=== PATIENT | female | born 1985 | race Caucasian/White ===

== ENCOUNTER 2021-08-11 14:30 | Inpatient (IN) ==
[2021-08-11 15:52] LABS: Basophils % 0.4 % (0.0-0.8); Eosinophils # 0.1 10*3/uL (0.0-0.87); Eosinophils % 1.3 % (0.00-10.9); Hematocrit 37.3 VOL% (35.7-47.0); Hemoglobin 12.4 GM/DL (12.0-16.0); Immature Granulocytes Absolute 0.11 #; Lymphocytes # 2.7 10*3/uL (1.4-4.0); Lymphocytes % 24.5 % (21.3-54.2); Mean Corpuscular HGB Conc 33.2 GM/DL (32-36); Mean Corpuscular Volume 87.4 FL (87-102); Mean Platelet Volume 10.1 FL (9.6-12.0); Monocytes % 5.9 % (1.7-12.7); Neutrophils % 66.9 % (38.7-73.9); Platelet Count 342 T/CUMM (130-400); Red Blood Count 4.27 MC/CUMM (3.8-5.5); Red Cell Distribution Width 16.8 % (9.3-17.3); White Blood Count 11.1 T/CUMM (4-12)
[2021-08-11] MEDS: INSULIN REGULAR 100 UNIT/ML SUBCUT SCH ×2 (15:57→21:10)
[2021-08-11 16:06] LABS: Alanine Aminotransferase 14 U/L (13-56); Albumin 2.2 G/DL (3.4-5.0); Alkaline Phosphatase 71 U/L (45-117); Aspartate Amino Transferase 11 U/L (0-37); Bilirubin,Total < 0.39 MG/DL (0.20-1.00); Blood Urea Nitrogen 11 MG/DL (7-18); Calcium 9.1 MG/DL (8.5-10.1); Carbon Dioxide 20 MMOL/L (21-32); Estimated Glom Filtration Rate 164 ML/MIN; Glucose 236 MG/DL (74-106); Osmolality,Calculated 270.5 MOS/KG (273-304); Potassium 4.3 MMOL/L (3.5-5.1); Sodium 132 MMOL/L (136-145)
[2021-08-11] MEDS ORDERED: GLUCAGON 1 MG VIAL IM PRN (18:10)
[2021-08-11] MEDS ORDERED: DEXTROSE 10% 250 ML BAG IV PRN (18:12)
[2021-08-12] MEDS: INSULIN REGULAR 100 UNIT/ML SUBCUT SCH ×4 (08:12→21:54)
[2021-08-12] MEDS: ALUMINUM/MAGNES/SIMETH MAX STR 30 ML UDCUP PO PRN ×2 (11:27→20:02)
[2021-08-12] MEDS: ACETAMINOPHEN 500 MG TABLET PO PRN (17:06)
[2021-08-12] MEDS ORDERED: ONDANSETRON 4 MG TABLET PO ONE (19:13)
[2021-08-12] MEDS ORDERED: SCOPOLAMINE 1.5 MG PATCH TRANSDERM SCH (19:30)
[2021-08-12] MEDS: BETAMETH SODIUM PHOS/ACETATE 30 MG/5 ML VIAL IM SCH (20:02)
[2021-08-12] MEDS: ZALEPLON 5 MG CAPSULE PO PRN (21:54)
[2021-08-13] MEDS: INSULIN REGULAR 100 UNIT/ML SUBCUT SCH ×4 (08:11→21:57)
[2021-08-13] MEDS: BETAMETH SODIUM PHOS/ACETATE 30 MG/5 ML VIAL IM SCH (08:14)
[2021-08-13] MEDS: ACETAMINOPHEN 500 MG TABLET PO PRN ×2 (08:16→13:34)
[2021-08-13] MEDS: ALUMINUM/MAGNES/SIMETH MAX STR 30 ML UDCUP PO PRN ×2 (12:51→23:30)
[2021-08-13] MEDS ORDERED: BUTALBITAL/ACETAMIN/CAFFEINE 50-325-40 MG TABLET PO ONE (17:30)
[2021-08-13] MEDS: LABETALOL 200 MG TABLET PO SCH (17:37)
[2021-08-13] MEDS ORDERED: LORazepam 1 MG TABLET PO PRN (21:56)
[2021-08-14] MEDS ORDERED: diphenhydrAMINE CAP 25 MG CAPSULE PO PRN ×2 (02:18→02:30)
[2021-08-14] MEDS ORDERED: diphenhydrAMINE CAP 50 MG CAPSULE PO PRN (02:21)
[2021-08-14] MEDS: INSULIN REGULAR 100 UNIT/ML SUBCUT SCH ×4 (08:19→21:28)
[2021-08-14] MEDS: LABETALOL 200 MG TABLET PO SCH ×2 (09:31→21:15)
[2021-08-14] MEDS: ALUMINUM/MAGNES/SIMETH MAX STR 30 ML UDCUP PO PRN (21:15)
[2021-08-15] MEDS: INSULIN REGULAR 100 UNIT/ML SUBCUT SCH ×5 (07:40→21:15)
[2021-08-15] MEDS: LABETALOL 200 MG TABLET PO SCH ×2 (13:09→21:14)
[2021-08-16] MEDS: INSULIN REGULAR 100 UNIT/ML SUBCUT SCH ×4 (08:01→21:21)
[2021-08-16] MEDS: LABETALOL 200 MG TABLET PO SCH ×2 (09:38→21:00)
[2021-08-16] MEDS: ZALEPLON 5 MG CAPSULE PO PRN (21:21)
[2021-08-17] MEDS: INSULIN REGULAR 100 UNIT/ML SUBCUT SCH ×3 (07:40→16:30)
[2021-08-17 08:42] VITALS: BP 146/76
[2021-08-17] MEDS: LABETALOL 200 MG TABLET PO SCH (08:47)
== END 2021-08-17 16:35 | disposition home or self-care (01) | DRG 566 ==
LOC: N.OB 15:00 → INTOOBSV 08-12 08:59 → N.OB 08-12 08:59
PROVIDERS: ADMIT Obstetrics & Gynecology; ATTEND Obstetrics & Gynecology

== ENCOUNTER 2021-08-20 12:04 | Inpatient (IN) ==
[2021-08-20] MEDS ORDERED: ceFAZolin 2,000 MG/50 ML DUPLEX IV ONE (13:54)
[2021-08-20] MEDS ORDERED: CARBOPROST TROMETHAMINE 250 MCG/ML AMP IM PRN (13:54)
[2021-08-20] MEDS ORDERED: OXYTOCIN/LR 20 UNIT/1,000 ML BAG IV ONE ×2 (13:54→19:14)
[2021-08-20] MEDS ORDERED: METHYLERGONOVINE 0.2 MG/1 ML AMP IM PRN (13:54)
[2021-08-20] MEDS ORDERED: CITRIC ACID/SODIUM CITRATE 30 ML UDCUP PO ONE (13:54)
[2021-08-20] MEDS ORDERED: FAMOTIDINE 20 MG/2 ML VIAL IV ONE (13:54)
[2021-08-20] MEDS ORDERED: miSOPROStoL 200 MCG TABLET RECTAL PRN (13:54)
[2021-08-20] MEDS ORDERED: TRANEXAMIC ACID 1,000 MG in SODIUM CHLORIDE 0.9% 100 ML IV PRN (13:54)
[2021-08-20] MEDS: LACTATED RINGERS 1,000 ML IV SCH ×2 (14:21→17:37)
[2021-08-20 14:27] LABS: Basophils % 0.3 % (0.0-0.8); Eosinophils # 0.3 10*3/uL (0.0-0.87); Eosinophils % 2.1 % (0.00-10.9); Hematocrit 37.6 VOL% (35.7-47.0); Hemoglobin 12.3 GM/DL (12.0-16.0); Immature Granulocytes % 0.9 %; Lymphocytes # 2.8 10*3/uL (1.4-4.0); Lymphocytes % 23.9 % (21.3-54.2); Mean Corpuscular HGB Conc 32.7 GM/DL (32-36); Mean Corpuscular Volume 88.9 FL (87-102); Mean Platelet Volume 10.3 FL (9.6-12.0); Monocytes # 0.8 10*3/uL (0.11-0.8); Monocytes % 6.4 % (1.7-12.7); Neutrophils % 66.4 % (38.7-73.9); Platelet Count 301 T/CUMM (130-400); Red Blood Count 4.23 MC/CUMM (3.8-5.5); White Blood Count 11.7 T/CUMM (4-12)
[2021-08-20 14:42] LABS: INR 0.9; PT Patient Result 10.3 SECS (10.5-12.0); Partial Thromboplastin Time 23.1 SECS (23.8-32.1)
[2021-08-20 14:51] LABS: Alanine Aminotransferase 14 U/L (13-56); Albumin 2.4 G/DL (3.4-5.0); Alkaline Phosphatase 78 U/L (45-117); Aspartate Amino Transferase 9 U/L (0-37); Bilirubin,Total < 0.39 MG/DL (0.20-1.00); Blood Urea Nitrogen 11 MG/DL (7-18); Calcium 8.6 MG/DL (8.5-10.1); Carbon Dioxide 22 MMOL/L (21-32); Chloride 107 MMOL/L (98-107); Estimated Glom Filtration Rate 164 ML/MIN; Glucose 197 MG/DL (74-106); Osmolality,Calculated 278.7 MOS/KG (273-304); Potassium 4.3 MMOL/L (3.5-5.1); Sodium 138 MMOL/L (136-145); Total Protein 6.8 G/DL (6.4-8.2)
[2021-08-20 15:48] LABS: Protein/Creatinine Ratio,Urine 0.3 RATIO
[2021-08-20 15:59] LABS: Barbiturates Screen,Urine Negative (Negative); Benzodiazepines Screen,Urine Negative (Negative); Cannabinoid Screen,Urine Positive (Negative); Opiate Screen,Urine Negative (Negative); Phencyclidine Screen,Urine Negative (Negative)
[2021-08-20] MEDS ORDERED: TRANEXAMIC ACID 1,000 MG/10 ML VIAL ONE (17:27)
[2021-08-20] MEDS ORDERED: PHENYLEPHRINE 1 MG/10 ML SYRINGE IV ONE (17:55)
[2021-08-20] MEDS ORDERED: buprenorphine HCL 0.3 MG/ML VIAL ONE (17:55)
[2021-08-20] MEDS ORDERED: BUPIVACAINE MPF 0.5% 30 ML VIAL ONE (17:55)
[2021-08-20 18:39] LABS: Mucus,Urine Occasional /LPF (Occasional); RBC,Urine <1 /HPF (0-4); Squamous Epithelial Cell,Urine Occasional /HPF (0-10)
[2021-08-20 18:40] LABS: Bilirubin,Urine Negative (Negative); Blood, Urine Negative (Negative); Glucose,Urine (UA) >=1000 mg/dL (Negative); Ketones,Urine Negative (Negative); Nitrite,Urine Negative (Negative); Protein,Urine Negative (Negative); Urine Appearance Clear (Clear); Urine Color Yellow (Yellow); Urine Specific Gravity 1.033 (1.001-1.035); Urine Urobilinogen 0.2 eU/dL (<2.0); Urine pH 5.5 (4.5-8.0)
[2021-08-20 18:58] LABS: Cord Arterial Blood HCO3 16.6 MMOL/L
[2021-08-20 19:00] LABS: Cord Venous Blood HCO3 22.6 MMOL/L; Cord Venous Blood PCO2 63.1 MMHG; Cord Venous Blood PO2 < 19.0 MMHG
[2021-08-20] MEDS ORDERED: DEXAMETHASONE 4 MG/1 ML VIAL ONE (19:13)
[2021-08-20] MEDS ORDERED: KETOROLAC 30 MG/1 ML VIAL ONE (19:13)
[2021-08-20] MEDS ORDERED: ONDANSETRON 4 MG/2 ML VIAL ONE (19:13)
[2021-08-20] MEDS ORDERED: ACETAMINOPHEN INJ 1,000 MG/100 ML VIAL IV ONE (19:13)
[2021-08-20] MEDS ORDERED: ONDANSETRON 4 MG/2 ML VIAL IV PRN (19:14)
[2021-08-20] MEDS ORDERED: MAGNESIUM HYDROXIDE SUSP 30 ML UDCUP PO PRN (19:14)
[2021-08-20] MEDS ORDERED: ACETAMINOPHEN 325 MG TABLET PO PRN (19:14)
[2021-08-20] MEDS ORDERED: SIMETHICONE CHEW 80 MG TABLET PO PRN (19:14)
[2021-08-20] MEDS ORDERED: RHO(D) IMMUNE GLOBULIN 300 MCG SYRINGE IM ONE (19:14)
[2021-08-20] MEDS ORDERED: GLUCAGON 1 MG VIAL IM PRN (19:17)
[2021-08-20] MEDS ORDERED: LACTATED RINGERS 1,000 ML IV SCH (19:30)
[2021-08-20] MEDS ORDERED: DEXTROSE 10% 250 ML BAG IV PRN (19:45)
[2021-08-20] MEDS: LABETALOL 200 MG TABLET PO SCH (21:10)
[2021-08-20] MEDS: DOCUSATE SODIUM 100 MG CAPSULE PO SCH (21:10)
[2021-08-20] MEDS: INSULIN REGULAR 100 UNIT/ML SUBCUT SCH (21:38)
[2021-08-20] MEDS: oxyCODONE/ACETAMINOPHEN 5-325 MG TABLET PO PRN (23:00)
[2021-08-21] MEDS: ACETAMINOPHEN 500 MG TABLET PO SCH ×3 (00:37→12:27)
[2021-08-21] MEDS: KETOROLAC 30 MG/1 ML VIAL IV SCH ×3 (00:37→12:28)
[2021-08-21 05:23] LABS: Basophils % 0.2 % (0.0-0.8); Eosinophils % 0.1 % (0.00-10.9); Hemoglobin 11.2 GM/DL (12.0-16.0); Immature Granulocytes % 0.8 %; Immature Granulocytes Absolute 0.11 #; Lymphocytes # 1.9 10*3/uL (1.4-4.0); Lymphocytes % 14.2 % (21.3-54.2); Mean Corpuscular Volume 90.2 FL (87-102); Mean Platelet Volume 11.1 FL (9.6-12.0); Monocytes # 0.6 10*3/uL (0.11-0.8); Monocytes % 4.1 % (1.7-12.7); Neutrophils % 80.6 % (38.7-73.9); Platelet Count 276 T/CUMM (130-400); Red Blood Count 3.88 MC/CUMM (3.8-5.5); Red Cell Distribution Width 16.9 % (9.3-17.3); White Blood Count 13.6 T/CUMM (4-12)
[2021-08-21] MEDS: DOCUSATE SODIUM 100 MG CAPSULE PO SCH (08:49)
[2021-08-21] MEDS: LABETALOL 200 MG TABLET PO SCH ×2 (08:49→21:38)
[2021-08-21] MEDS: MULTIVITAMIN (PRENATAL) TABLET PO SCH (08:49)
[2021-08-21] MEDS: INSULIN REGULAR 100 UNIT/ML SUBCUT SCH ×3 (11:38→21:54)
[2021-08-21] MEDS: ENOXAPARIN 40 MG/0.4 ML SYRINGE SUBCUT SCH (13:49)
[2021-08-21] MEDS: oxyCODONE/ACETAMINOPHEN 5-325 MG TABLET PO PRN (16:29)
[2021-08-21] MEDS: IBUPROFEN 800 MG TABLET PO PRN (21:35)
[2021-08-22] MEDS: oxyCODONE/ACETAMINOPHEN 5-325 MG TABLET PO PRN ×4 (07:45→22:00)
[2021-08-22] MEDS: DOCUSATE SODIUM 100 MG CAPSULE PO SCH ×3 (07:55→20:37)
[2021-08-22] MEDS: INSULIN REGULAR 100 UNIT/ML SUBCUT SCH ×5 (07:56→20:50)
[2021-08-22] MEDS: LABETALOL 200 MG TABLET PO SCH ×2 (08:55→20:37)
[2021-08-22] MEDS: MULTIVITAMIN (PRENATAL) TABLET PO SCH (08:55)
[2021-08-22] MEDS: ENOXAPARIN 40 MG/0.4 ML SYRINGE SUBCUT SCH (14:19)
[2021-08-22 18:10] VITALS: BP 126/71
[2021-08-22] MEDS: IBUPROFEN 800 MG TABLET PO PRN (20:19)
[2021-08-22] MEDS ORDERED: ZALEPLON 5 MG CAPSULE PO PRN (22:02)
[2021-08-23] MEDS: oxyCODONE/ACETAMINOPHEN 5-325 MG TABLET PO PRN (06:20)
[2021-08-23] MEDS: INSULIN REGULAR 100 UNIT/ML SUBCUT SCH ×2 (07:25→11:27)
[2021-08-23] MEDS: LABETALOL 200 MG TABLET PO SCH (09:20)
[2021-08-23] MEDS: DOCUSATE SODIUM 100 MG CAPSULE PO SCH (09:20)
[2021-08-23] MEDS: MULTIVITAMIN (PRENATAL) TABLET PO SCH (09:20)
[2021-08-23] MEDS ORDERED: DIPH/TET/ACEL PERT BOOSTER VACCINE 0.5 ML VIAL IM ONE (09:27)
[2021-08-23] MEDS: IBUPROFEN 800 MG TABLET PO PRN (11:11)
== END 2021-08-23 12:43 | disposition home or self-care (01) | DRG 539 ==
LOC: N.LDOUT 12:04 → N.LD 12:07
PROVIDERS: ADMIT Obstetrics & Gynecology; ATTEND Obstetrics & Gynecology

== ENCOUNTER 2022-03-28 12:35 | Inpatient (IN) ==
[2022-03-28 13:13] LABS: Basophils # 0.1 10*3/uL (0.0-0.2); Basophils % 0.5 % (0.0-0.8); Eosinophils # 0.3 10*3/uL (0.0-0.87); Eosinophils % 2.3 % (0.00-10.9); Hematocrit 44.2 VOL% (35.7-47.0); Hemoglobin 15.2 GM/DL (12.0-16.0); Immature Granulocytes % 0.5 %; Immature Granulocytes Absolute 0.05 #; Lymphocytes # 3.2 10*3/uL (1.4-4.0); Lymphocytes % 29.6 % (21.3-54.2); Mean Corpuscular HGB Conc 34.4 GM/DL (32-36); Mean Corpuscular Volume 84.4 FL (87-102); Monocytes # 0.7 10*3/uL (0.11-0.8); Monocytes % 5.9 % (1.7-12.7); Neutrophils % 61.2 % (38.7-73.9); Platelet Count 337 T/CUMM (130-400); Red Blood Count 5.24 MC/CUMM (3.8-5.5); Red Cell Distribution Width 14.7 % (9.3-17.3); White Blood Count 10.9 T/CUMM (4-12)
[2022-03-28 13:26] LABS: Alanine Aminotransferase 31 U/L (13-56); Albumin 3.7 G/DL (3.4-5.0); Alkaline Phosphatase 69 U/L (45-117); Aspartate Amino Transferase 17 U/L (0-37); Blood Urea Nitrogen 17 MG/DL (7-18); Calcium 9.3 MG/DL (8.5-10.1); Carbon Dioxide 24 MMOL/L (21-32); Chloride 99 MMOL/L (98-107); Glucose 465 MG/DL (74-106); Osmolality,Calculated 281.8 MOS/KG (273-304); Potassium 4.3 MMOL/L (3.5-5.1); Sodium 130 MMOL/L (136-145); Total Protein 7.7 G/DL (6.4-8.2)
[2022-03-28] MEDS ORDERED: SODIUM CHLORIDE 0.9% 1,000 ML IV STA (13:55)
[2022-03-28] MEDS ORDERED: INSULIN LISPRO 100 UNIT/ML SUBCUT STA (13:55)
[2022-03-28] MEDS ORDERED: ACETAMINOPHEN 325 MG TABLET PO PRN (17:05)
[2022-03-28] MEDS ORDERED: hydrALAZINE 20 MG/1 ML VIAL IV PRN (17:05)
[2022-03-28] MEDS ORDERED: ONDANSETRON 4 MG/2 ML VIAL IV PRN (17:05)
[2022-03-28] MEDS ORDERED: GLUCAGON 1 MG VIAL IM PRN (17:05)
[2022-03-28] MEDS ORDERED: DEXTROSE 10% 250 ML BAG IV PRN (17:18)
[2022-03-28 17:45] LABS: Thyroid Stimulating Hormone 1.28 uIU/ml (0.358-3.74)
[2022-03-28] MEDS: MORPHINE 2 MG/1 ML SYRINGE IV PRN (18:09)
[2022-03-28] MEDS: SODIUM CHLORIDE 0.9% 1,000 ML IV SCH (18:17)
[2022-03-28 18:25] LABS: INR 0.9; PT Patient Result 9.9 SECS (10.1-12.1)
[2022-03-28] MEDS: diphenhydrAMINE 50 MG/1 ML VIAL IV PRN (18:53)
[2022-03-28] MEDS: HEPARIN DRIP 25,000 UNITS/500 ML PREMIX IV SCH (18:54)
[2022-03-28] MEDS ORDERED: HEPARIN 5,000 UNIT/1 ML VIAL IV ONE (18:55)
[2022-03-28] MEDS: DOCUSATE SODIUM 100 MG CAPSULE PO SCH (20:31)
[2022-03-28] MEDS: INSULIN GLARGINE 100 UNIT/ML SUBCUT SCH (20:31)
[2022-03-28] MEDS: INSULIN REGULAR 100 UNIT/ML SUBCUT SCH (20:31)
[2022-03-28] MEDS: INSULIN LISPRO 100 UNIT/ML SUBCUT SCH (22:03)
[2022-03-29 01:39] LABS: Basophils % 0.4 % (0.0-0.8); Eosinophils # 0.3 10*3/uL (0.0-0.87); Eosinophils % 3.2 % (0.00-10.9); Hematocrit 40.8 VOL% (35.7-47.0); Hemoglobin 13.6 GM/DL (12.0-16.0); Immature Granulocytes % 0.5 %; Immature Granulocytes Absolute 0.05 #; Lymphocytes # 4.5 10*3/uL (1.4-4.0); Mean Corpuscular HGB Conc 33.3 GM/DL (32-36); Mean Corpuscular Volume 86.8 FL (87-102); Mean Platelet Volume 9.9 FL (9.6-12.0); Monocytes # 0.5 10*3/uL (0.11-0.8); Monocytes % 5.6 % (1.7-12.7); Neutrophils % 42.3 % (38.7-73.9); Platelet Count 267 T/CUMM (130-400); White Blood Count 9.4 T/CUMM (4-12)
[2022-03-29 02:17] LABS: Calcium 8.2 MG/DL (8.5-10.1); Osmolality,Calculated 280.8 MOS/KG (273-304); Potassium 3.9 MMOL/L (3.5-5.1)
[2022-03-29] MEDS: SODIUM CHLORIDE 0.9% 1,000 ML IV SCH ×3 (02:17→17:20)
[2022-03-29 02:21] LABS: Atypical Lymphocytes Few; Platelet Estimate Normal
[2022-03-29] MEDS: diphenhydrAMINE 50 MG/1 ML VIAL IV PRN (03:40)
[2022-03-29] MEDS: MORPHINE 2 MG/1 ML SYRINGE IV PRN ×3 (03:41→18:18)
[2022-03-29] MEDS: PANTOPRAZOLE 40 MG TABLET PO SCH (08:11)
[2022-03-29] MEDS: DOCUSATE SODIUM 100 MG CAPSULE PO SCH ×2 (08:11→21:00)
[2022-03-29] MEDS: LOSARTAN 50 MG TABLET PO SCH (08:11)
[2022-03-29] MEDS: INSULIN LISPRO 100 UNIT/ML SUBCUT SCH ×4 (08:12→21:01)
[2022-03-29] MEDS: INSULIN REGULAR 100 UNIT/ML SUBCUT SCH (08:12)
[2022-03-29] MEDS ORDERED: DEXTROSE 50% 25 GM/50 ML VIAL IV PRN (10:35)
[2022-03-29] MEDS ORDERED: GLUCAGON 1 MG VIAL IM PRN (10:35)
[2022-03-29] MEDS ORDERED: PHENOL 1.4% THROAT SPRAY 177 ML BOTTLE PO PRN (16:25)
[2022-03-29] MEDS: HEPARIN DRIP 25,000 UNITS/500 ML PREMIX IV SCH (17:20)
[2022-03-29] MEDS: INSULIN GLARGINE 100 UNIT/ML SUBCUT SCH (21:02)
[2022-03-30 01:08] LABS: Basophils % 0.3 % (0.0-0.8); Eosinophils # 0.3 10*3/uL (0.0-0.87); Eosinophils % 3.6 % (0.00-10.9); Hematocrit 38.4 VOL% (35.7-47.0); Immature Granulocytes % 0.5 %; Immature Granulocytes Absolute 0.04 #; Lymphocytes # 4.4 10*3/uL (1.4-4.0); Lymphocytes % 50.7 % (21.3-54.2); Mean Corpuscular HGB Conc 33.9 GM/DL (32-36); Mean Corpuscular Volume 87.9 FL (87-102); Monocytes # 0.5 10*3/uL (0.11-0.8); Monocytes % 5.5 % (1.7-12.7); Neutrophils % 39.4 % (38.7-73.9); Platelet Count 245 T/CUMM (130-400); Red Blood Count 4.37 MC/CUMM (3.8-5.5); Red Cell Distribution Width 14.9 % (9.3-17.3); White Blood Count 8.6 T/CUMM (4-12)
[2022-03-30 01:24] LABS: Calcium 7.8 MG/DL (8.5-10.1); Osmolality,Calculated 278.8 MOS/KG (273-304); Potassium 3.8 MMOL/L (3.5-5.1)
[2022-03-30] MEDS: HEPARIN DRIP 25,000 UNITS/500 ML PREMIX IV SCH ×2 (02:07→13:20)
[2022-03-30] MEDS: SODIUM CHLORIDE 0.9% 1,000 ML IV SCH ×4 (07:10→23:14)
[2022-03-30] MEDS: MORPHINE 2 MG/1 ML SYRINGE IV PRN ×2 (07:12→17:38)
[2022-03-30] MEDS: DOCUSATE SODIUM 100 MG CAPSULE PO SCH ×2 (08:34→20:10)
[2022-03-30] MEDS: LOSARTAN 50 MG TABLET PO SCH ×2 (08:34→15:15)
[2022-03-30] MEDS: PANTOPRAZOLE 40 MG TABLET PO SCH ×2 (08:34→15:15)
[2022-03-30] MEDS ORDERED: HEPARIN/NACL 0.9% 2 UNITS/ML 4,000 UNIT/2,000 ML BAG IV ONE (09:06)
[2022-03-30] MEDS: INSULIN LISPRO 100 UNIT/ML SUBCUT SCH ×4 (09:40→20:09)
[2022-03-30] MEDS ORDERED: DIAZEPAM 5 MG TABLET PO ONE (10:00)
[2022-03-30] MEDS ORDERED: MIDAZOLAM 2 MG/2 ML VIAL IV ONE (10:30)
[2022-03-30] MEDS ORDERED: fentaNYL 100 MCG/2 ML VIAL IV ONE ×2 (10:30→19:42)
[2022-03-30] MEDS: SODIUM CHLORIDE 0.45% 1,000 ML IV SCH (11:18)
[2022-03-30] MEDS ORDERED: HEPARIN 1,000 UNIT/1 ML VIAL ONE (12:38)
[2022-03-30] MEDS ORDERED: HEPARIN 1,000 UNIT/1 ML VIAL IV ONE (12:42)
[2022-03-30] MEDS ORDERED: ALTEPLASE 2 MG VIAL ONE (12:50)
[2022-03-30] MEDS ORDERED: ALTEPLASE 24 MG in SODIUM CHLORIDE 0.9% 480 ML IV SCH (13:00)
[2022-03-30 15:23] LABS: INR 0.9; PT Patient Result 10.5 SECS (10.1-12.1); Partial Thromboplastin Time 51.8 SECS (23.7-32.9)
[2022-03-30] MEDS ORDERED: LABETALOL 20 MG/4 ML SYRINGE IV ONE ×2 (19:26→20:05)
[2022-03-30] MEDS: INSULIN GLARGINE 100 UNIT/ML SUBCUT SCH (20:10)
[2022-03-30] MEDS ORDERED: LORazepam 2 MG/1 ML VIAL ONE (21:05)
[2022-03-30] MEDS ORDERED: LORazepam 2 MG/1 ML VIAL IV ONE (21:15)
[2022-03-31] MEDS: SODIUM CHLORIDE 0.9% 1,000 ML IV SCH ×3 (00:56→17:04)
[2022-03-31] MEDS: LORazepam 2 MG/1 ML VIAL IV PRN ×2 (00:56→07:43)
[2022-03-31 02:53] LABS: Basophils % 0.4 % (0.0-0.8); Eosinophils # 0.2 10*3/uL (0.0-0.87); Eosinophils % 2.9 % (0.00-10.9); Hematocrit 36.4 VOL% (35.7-47.0); Hemoglobin 12.2 GM/DL (12.0-16.0); Immature Granulocytes % 0.5 %; Immature Granulocytes Absolute 0.04 #; Lymphocytes # 2.2 10*3/uL (1.4-4.0); Lymphocytes % 28.8 % (21.3-54.2); Mean Corpuscular HGB Conc 33.5 GM/DL (32-36); Mean Corpuscular Volume 86.9 FL (87-102); Mean Platelet Volume 9.8 FL (9.6-12.0); Monocytes # 0.4 10*3/uL (0.11-0.8); Monocytes % 5.3 % (1.7-12.7); Neutrophils % 62.1 % (38.7-73.9); Platelet Count 241 T/CUMM (130-400); Red Blood Count 4.19 MC/CUMM (3.8-5.5); Red Cell Distribution Width 14.7 % (9.3-17.3); White Blood Count 7.5 T/CUMM (4-12)
[2022-03-31 03:03] LABS: INR 0.9; PT Patient Result 10.3 SECS (10.1-12.1)
[2022-03-31 03:10] LABS: Calcium 8.1 MG/DL (8.5-10.1); Osmolality,Calculated 276.8 MOS/KG (273-304); Potassium 3.7 MMOL/L (3.5-5.1)
[2022-03-31] MEDS: HEPARIN DRIP 25,000 UNITS/500 ML PREMIX IV SCH ×2 (05:35→14:55)
[2022-03-31] MEDS: INSULIN LISPRO 100 UNIT/ML SUBCUT SCH ×4 (07:42→20:35)
[2022-03-31] MEDS: DOCUSATE SODIUM 100 MG CAPSULE PO SCH ×2 (08:25→20:35)
[2022-03-31] MEDS: LOSARTAN 50 MG TABLET PO SCH (08:25)
[2022-03-31] MEDS: PANTOPRAZOLE 40 MG TABLET PO SCH (08:25)
[2022-03-31] MEDS ORDERED: HEPARIN/NACL 0.9% 2 UNITS/ML 2,000 UNIT/1,000 ML BAG IV ONE ×2 (10:44→12:12)
[2022-03-31] MEDS ORDERED: MIDAZOLAM 2 MG/2 ML VIAL ONE (11:53)
[2022-03-31] MEDS ORDERED: fentaNYL 100 MCG/2 ML VIAL ONE (11:53)
[2022-03-31] MEDS: SODIUM CHLORIDE 0.45% 1,000 ML IV SCH (13:19)
[2022-03-31 13:43] LABS: Partial Thromboplastin Time 29.6 SECS (23.7-32.9)
[2022-03-31] MEDS ORDERED: CLOPIDOGREL 300 MG TABLET PO ONE (14:07)
[2022-03-31] MEDS: ASPIRIN EC 81 MG TABLET PO SCH (15:30)
[2022-03-31] MEDS: INSULIN GLARGINE 100 UNIT/ML SUBCUT SCH (20:36)
[2022-04-01] MEDS: SODIUM CHLORIDE 0.9% 1,000 ML IV SCH (01:09)
[2022-04-01 01:14] LABS: Basophils % 0.1 % (0.0-0.8); Eosinophils # 0.2 10*3/uL (0.0-0.87); Eosinophils % 3.3 % (0.00-10.9); Hematocrit 34.5 VOL% (35.7-47.0); Hemoglobin 11.6 GM/DL (12.0-16.0); Immature Granulocytes % 0.3 %; Immature Granulocytes Absolute 0.02 #; Lymphocytes % 30.1 % (21.3-54.2); Mean Corpuscular HGB Conc 33.6 GM/DL (32-36); Mean Corpuscular Volume 87.8 FL (87-102); Mean Platelet Volume 9.9 FL (9.6-12.0); Monocytes # 0.4 10*3/uL (0.11-0.8); Monocytes % 6.3 % (1.7-12.7); Neutrophils % 59.9 % (38.7-73.9); Platelet Count 215 T/CUMM (130-400); Red Blood Count 3.93 MC/CUMM (3.8-5.5); Red Cell Distribution Width 14.7 % (9.3-17.3); White Blood Count 6.7 T/CUMM (4-12)
[2022-04-01 01:29] LABS: Partial Thromboplastin Time 27.2 SECS (23.7-32.9)
[2022-04-01 01:34] LABS: Albumin 2.5 G/DL (3.4-5.0); Bilirubin,Total 0.4 MG/DL (0.20-1.00); Calcium 8.5 MG/DL (8.5-10.1); Osmolality,Calculated 279.5 MOS/KG (273-304); Potassium 3.4 MMOL/L (3.5-5.1); Total Protein 6.2 G/DL (6.4-8.2)
[2022-04-01] MEDS ORDERED: ASPIRIN EC 325 MG TABLET PO PRN ×2 (03:47→04:00)
[2022-04-01] MEDS ORDERED: ACETAMINOPHEN 500 MG TABLET PO PRN (03:48)
[2022-04-01] MEDS: INSULIN LISPRO 100 UNIT/ML SUBCUT SCH (08:59)
[2022-04-01] MEDS: DOCUSATE SODIUM 100 MG CAPSULE PO SCH (09:00)
[2022-04-01] MEDS: LOSARTAN 50 MG TABLET PO SCH (09:00)
[2022-04-01] MEDS ORDERED: CLOPIDOGREL 75 MG TABLET PO SCH (09:00)
[2022-04-01] MEDS: ASPIRIN EC 81 MG TABLET PO SCH (09:00)
[2022-04-01] MEDS: PANTOPRAZOLE 40 MG TABLET PO SCH (09:00)
[2022-04-01] MEDS ORDERED: POTASSIUM CHLORIDE 20 MEQ TABLET PO ONE (09:39)
[2022-04-01 15:05] VITALS: BP 135/58
[2022-04-01] MEDS ORDERED: metFORMIN 500 MG TABLET PO SCH (17:00)
[2022-04-02] MEDS ORDERED: CHOLECALCIFEROL 1,000 UNIT TABLET PO SCH (09:00)
[2022-04-03 13:58] LABS: Antinuclear Ab, S 0.2 U
[2022-04-05 13:11] LABS: Protein S Activity Plasma 109 % (50 - 160)
[2022-04-05 14:31] LABS: Protein C Activity Plasma 139 % (70 - 150)
[2022-04-06 07:46] LABS: F5DNA Reviewed By SEE COMMENTS; Factor V Leiden (R506Q) Mutati Negative (Negative); PTNT Reviewed By SEE COMMENTS
== END 2022-04-01 15:47 | disposition home or self-care (01) | DRG 182 ==
LOC: EDBD → EDUNIT# → N.EDINP 12:35 → N.ED 12:35 → N.3E 17:46 → SUATTDRO 03-30 12:50 → N.CC 03-30 13:27 → N.TELEN 04-01 04:24
PROVIDERS: ADMIT Family Medicine; ATTEND Hospitalist